=== PATIENT | female | born 1985 | race African-American/Black ===

== ENCOUNTER 2017-08-18 00:46 | Observation (INO) | payer OTHER ==
[~2017-08-18 00:46] MED LIST: GLYB5TAB3 PO; HYDR-971 PO; INSU100C SQ; METF750T2 PO; NAPR500T4 PO; NPH,100V SQ
[2017-08-18] MEDS ORDERED: IV RINGERS,LACTATED 1000ML 1,000 ML IV SCH ×2 (01:30→02:40)
[2017-08-18] MEDS ORDERED: 0.9 % SODIUM CHLORIDE 10 ML DISP.SYRIN. IV PRN (01:30)
[2017-08-18] MEDS ORDERED: ZOLPIDEM 5 MG TABLET. PO PRN (01:30)
[2017-08-18 01:49] LABS: BILIRUBIN,URINE NEGATIVE (NEG); GLUCOSE,URINE NEGATIVE (NEG); NITRITE,URINE NEGATIVE (NEG); PROTEIN,URINE NEGATIVE (NEG-TRACE); UROBILINOGEN,URINE 0.2 mg/dL (0.2 mg/dL)
[2017-08-18 01:55] LABS: BARBITURATES NEG (NEG); BENZODIAZEPINES NEG (NEG); CANNABINOIDS NEG (NEG); COCAINE NEG (NEG); METHADONE NEG (NEG); OPIATES NEG (NEG); PHENCYCLIDINE NEG (NEG)
[2017-08-18] MEDS ORDERED: fentaNYL PF VIAL 100 MCG/2 ML VIAL IV PRN (02:00)
[2017-08-18] MEDS: hydrOXYzine PAMOATE 25 MG CAPSULE PO PRN (02:10)
[2017-08-18 02:12] LABS: BACTERIA,URINE 0 /HPF (0-FEW); RBC,URINE 0 /HPF (0-2); SQUAMOUS EPITHELIAL CELL,UR FEW /LPF; WBC,URINE OCC /HPF (0-4)
[2017-08-18 03:12] LABS: BASO # 0.1 x10^3/uL (0.0-0.2); BASO % 1 % (0-3); EOS % 1 % (0-3); HEMATOCRIT 27.1 % (36.0-47.0); HEMOGLOBIN 8.9 g/dL (12.0-15.5); LYMPH # 2.1 x10^3/uL (1.0-4.8); LYMPH % 28 % (24-48); MEAN CORPUSCULAR HEMOGLOBIN 28 pg (25-35); MEAN CORPUSCULAR HGB CONC 33 g/dL (31-37); MEAN CORPUSCULAR VOLUME 86 fL (79-100); MONO % 9 % (0-9); NEUT % 61 % (31-73); PLATELET COUNT 159 x10^3/uL (140-400); RED BLOOD COUNT 3.16 x10^6/uL (3.50-5.40); RED CELL DISTRIBUTION WIDTH 13.8 % (11.5-14.5); WHITE BLOOD COUNT 7.7 x10^3/uL (4.0-11.0)
[2017-08-18 03:20] LABS: CALCIUM 8.9 mg/dL (8.5-10.1); CREATININE 0.5 mg/dL (0.6-1.0); POTASSIUM 3.3 mmol/L (3.5-5.1)
[2017-08-18 03:26] LABS: ALBUMIN 2.7 g/dL (3.4-5.0); ALBUMIN/GLOBULIN RATIO 0.7 (1.0-1.7); TOTAL BILIRUBIN 0.2 mg/dL (0.2-1.0); TOTAL PROTEIN 6.4 g/dL (6.4-8.2)
[2017-08-18] MEDS ORDERED: MAGNESIUM SULFATE 4GM 100 ML IV ONE ×2 (03:49→04:00)
[2017-08-18] MEDS ORDERED: MAGNESIUM SULFATE 2GM 50 ML IV ONE ×2 (03:50→04:00)
[2017-08-18] MEDS ORDERED: AMPICILLIN SODIUM 2 GM in IV NORMAL SALINE 100ML 100 ML IV ONE (04:00)
[2017-08-18] MEDS: BETAMET ACET&NA PHOS 30 MG/5 ML VIAL. IM SCH (04:29)
[2017-08-18] MEDS: MAGNESIUM SULFATE 20GM 500 ML IV SCH ×2 (04:55→15:01)
[2017-08-18] MEDS: AMPICILLIN SODIUM 1 GM in IV NORMAL SALINE 50ML 50 ML IV SCH ×4 (07:57→20:54)
[2017-08-18] MEDS ORDERED: INSULIN DETEMIR 300 UNITS/3 ML INSULN.PEN. SQ ONE (08:30)
[2017-08-18] MEDS: metFORMIN 500 MG TABLET PO SCH ×2 (08:42→20:53)
--- NOTE | 2017-08-18 16:19 | PDOC ---
Provider Note Provider Note 29 weeks MIN ctx FHT reassuring VSS Cont mg til 4AM Start procardia and vistaril FU in AM STARR MCDONALD MD Aug 18, 2017 16:19
[2017-08-18] MEDS ORDERED: INSULIN DETEMIR 300 UNITS/3 ML INSULN.PEN. SQ SCH (21:00)
[2017-08-19] MEDS: MAGNESIUM SULFATE 20GM 500 ML IV SCH (00:16)
[2017-08-19] MEDS: hydrOXYzine PAMOATE 25 MG CAPSULE PO PRN ×3 (00:21→14:28)
[2017-08-19] MEDS: NIFEdipine 10 MG CAPSULE PO SCH ×3 (04:37→17:03)
[2017-08-19] MEDS: BETAMET ACET&NA PHOS 30 MG/5 ML VIAL. IM SCH (04:38)
[2017-08-19] MEDS ORDERED: hydrOXYzine PAMOATE 25 MG CAPSULE PO PRN (07:30)
[2017-08-19] MEDS ORDERED: INSULIN DETEMIR 300 UNITS/3 ML INSULN.PEN. SQ SCH (08:00)
[2017-08-19] MEDS: metFORMIN 500 MG TABLET PO SCH (08:05)
--- NOTE | 2017-08-19 15:46 | PDOC3 ---
OB DISCHARGE SUMMARY DATE OF ADMISSION: 08/18/17 DATE OF DISCHARGE: 08/20/17 REASON FOR ADMISSION: labor PROCEDURES: Ultrasound, Mgmt of OB Complications INTRAPARTUM PROCEDURES: Others (Mg tocolysis 2.Steroids 3.Abs) OPERATIONS: None DISCHARGE DIAGNOSIS: Others (PTS Stable) DISCHARGE INFORMATION: Activity, Diet HOSPITAL COURSE unremarkable CONDITION AT DISCHARGE Stable STARR MCDONALD MD Aug 19, 2017 15:46
--- NOTE | 2017-08-19 15:50 | PDOC1 ---
OB - History Hx of Present Care: Good Care Ultrasounds: Normal mid trimester US Obstetrical Complications: Gestational Diabetes Medical Complications: Other (GDM) Past Family/Social History * Past Medical, Surgical, Family and Obstetric Histories reviewed from chart. Rubella: Immune RPR/VDRL: Negative HBsAG: Negative OB - Chief Complaint & HPI Date of Admission: Date of Admission: Aug 18, 2017 at 00:46 Chief Complaint/History : 5 Para: 3 EDC: Nov 02, 2017 Reason for admission: IUP - Other reason for admission: PTL Admission Nurse Assessment Rev: Yes Problems: OB - Admission Exam Physical Exam Vitals: VS - Last 72 Hours, by Label Date Time Temp Pulse Resp B/P (MAP) Pulse Ox O2 Delivery O2 Flow Rate FiO2 08/19/17 10:40 108 120/68 08/19/17 04:37 101 08/18/17 02:10 20 Room Air HEENT: Normal, Nasal Mucosa Normal, Oropharynx Normal, Moist Membranes, Fontanelles Normal Heart: Regular Rate Lungs: Clear, Equal Abdomen: Gravid Extremities: Normal Pulses, No tenderness or swelling Reflexes: Normal Cervical Dilatation: None Effacement: 0% Station: Ballotable Membranes: Intact Accelerations: Accelerations Present Decelerations: No decelerations Short Term Variability: Present Care Home Variability: Moderate Contractions on Admission: < 5 Minutes Apart Intensity: Moderate Assessment/Plan Assessment/Plan 10/12 IUP PTL [place] Abs Problems: STARR MCDONALD MD Aug 19, 2017 15:50
[2017-08-19] MEDS ORDERED: HYDR50CA PO (15:54)
[2017-08-19] MEDS ORDERED: NIFE10CA PO (15:54)
[2017-08-19 17:03] VITALS: BP 117/56
== END 2017-08-19 17:20 | disposition home or self-care (01) ==
LOC: 3 SO LND 00:46
PROVIDERS: ADMIT Specialist; ATTEND Specialist
DX: O60.03 Preterm labor without delivery, third trimester (principal); O24.419 Gestational diabetes mellitus in pregnancy, unspecified control
CPT/HCPCS: 36415; 80053; 80307; 81001; 82962; 83036; 85025; 87086; 96361; 96365; 96366; 96367; 96368; 96372; 96375; G0378; G0379; J0290; J0702; J1815; J3010; J3475; J7060; Q0177; J7120; G0479

== ENCOUNTER 2017-08-29 23:35 | Observation (INO) | payer OTHER ==
[~2017-08-29 23:35] MED LIST changes: +HYDR50CA PO; +NIFE10CA PO
[2017-08-30] MEDS ORDERED: IV RINGERS,LACTATED 1000ML 1,000 ML IV SCH (00:15)
[2017-08-30 00:19] LABS: BILIRUBIN,URINE NEGATIVE (NEG); GLUCOSE,URINE >=1000 mg/dL (NEG); NITRITE,URINE NEGATIVE (NEG); PROTEIN,URINE NEGATIVE (NEG-TRACE); UROBILINOGEN,URINE 0.2 mg/dL (0.2 mg/dL)
[2017-08-30 00:25] LABS: BARBITURATES NEG (NEG); BENZODIAZEPINES NEG (NEG); CANNABINOIDS NEG (NEG); COCAINE NEG (NEG); METHADONE NEG (NEG); OPIATES NEG (NEG); PHENCYCLIDINE NEG (NEG)
[2017-08-30 00:28] LABS: BACTERIA,URINE 0 /HPF (0-FEW); RBC,URINE OCC /HPF (0-2); SQUAMOUS EPITHELIAL CELL,UR FEW /LPF; WBC,URINE OCC /HPF (0-4)
== END 2017-08-30 01:22 | disposition home or self-care (01) ==
LOC: 3 SO LND 23:35
PROVIDERS: ADMIT Specialist; ATTEND Specialist
DX: O26.853 Spotting complicating pregnancy, third trimester (principal); O26.893 Other specified pregnancy related conditions, third trimester; M54.9 Dorsalgia, unspecified; Z3A.30 30 weeks gestation of pregnancy
CPT/HCPCS: 80307; 81001; G0378; G0379; G0479